=== PATIENT | male | born 2000 | race Caucasian/White ===

== ENCOUNTER 2021-09-13 12:31 | Emergency (ER) | payer BC, SELFPAY ==
[2021-09-13 12:54] VITALS: PULSE 77; RESP 16; TEMP 36.6; O2SAT 98; BMI 28.7
[2021-09-13] MEDS: Tetracaine HCl/PF 0.5% Oph Sol 4 ML DROPS 3 DROP EYE-LEFT (14:05)
[2021-09-13] MEDS: Fluorescein Sodium STRIP 1 STRIP EYE-LEFT (14:05)
--- NOTE | 2021-09-13 15:09 | ED.EYEPROB ---
HPI - Eye Problem General Chief complaint: Eye Problems Stated complaint: metal in eye Time Seen by Provider: 09/13/21 13:57 Source: patient Mode of arrival: ambulatory History of Present Illness HPI Narrative: 20-year-old male with no significant past medical history presenting to the ED complaining metal foreign body to left eye x3 days. States was cutting under his car, then look to see progress and felt something fall into eye. denies wearing glasses or contacts. Reports eye irritation and tearing. Denies vision loss, blurry vision, nausea / vomiting MD chief complaint: eye pain and eye redness Related Data Previous Rx's Medication Instructions Recorded erythromycin 5 mg/gram (0.5 %) eye 0.5 inch ophthalmic (eye) QID 7 09/13/21 ointment days #3.5 grams ketorolac 0.4 % eye drops 1 drp ophthalmic (eye) QID 2 days 09/13/21 #5 mL Allergies Allergy/AdvReac Type Severity Reaction Status Date / Time Penicillins Allergy Hives Verified 09/13/21 13:00 Review of Systems Review of Systems: Constitutional: No Fever, No Chills, No Fatigue, No Malaise ENT/Mouth: No Ear Pain, No Nasal Congestion, No sore throat, No Rhinorrhea, No Swallowing Difficulty Eyes: + Eye Pain, No Swelling, No Redness, + Foreign Body, + Discharge, No Vision Changes Cardiovascular: No Chest Pain, No SOB Respiratory: No Cough, No Sputum, No Dyspnea Gastrointestinal: No Nausea, No Vomiting, No Diarrhea, No Constipation, No Abdominal pain, Genitourinary: No Dysuria, No Urinary Frequency, No Hematuria, No Flank Pain, No Urinary Flow Changes, No Hesitancy Musculoskeletal: No joint pain, No Myalgias, No Joint Swelling Skin: No Skin Lesions, No rash Neuro: No Weakness, No Loss of Consciousness, No Dizziness, No Headache Yes all other systems are reviewed and are negative Constitutional: Constitutional: Reports as per [facility] Past Medical History Attestation statement: The following information was validated with the patient. Social History Social History Advance Directives: No Advance Directives Information Provided: No Physical Exam Vital Signs: Vital Signs: Last Vital Signs Temp 98 F 09/13/21 12:54 Pulse 77 09/13/21 12:54 Resp 16 09/13/21 12:54 Pulse Ox 98 09/13/21 12:54 O2 Del Method 09/13/21 12:54 BMI result Body Mass Index 28.7 Const: General: cooperative, healthy appearing and no acute distress Orientation/consciousness: patient oriented x3 Limitations: no limitations HEENT: Head: Yes normal to inspection and Yes atraumatic Ears: hearing grossly normal bilaterally General nose exam: Normal external nose present Face and sinus: Yes normal facial exam Eyes: Periorbital: periorbital findings normal Eyelids: Yes eyelids normal Conjunctivae: conjunctival abnormal left conjunctival injection and discharge (clear) Corneas: corneas abnormal on the left fluorescein used and foreign body metallic and at clock position (8); without a rust ring; without ulcerations and fluorescein used Pupils: Equal, round and reactive pupils present EOM: EOMs intact bilaterally Direct Ophthalmoscopy: normal light reflex Neck: Neck: Yes normal visual inspection and Yes no meningeal signs Resp: Effort & Inspection: normal respiratory effort and no respiratory distress Auscultation: clear to auscultation bilaterally Cardio: Rate: regular rate Heart sounds: S1 normal heart sound present and S2 normal heart sound present Skin: Rashes: no rashes Wounds: no wounds Neuro: General: patient oriented x3, tone normal and no meningeal signs Cranial nerves: Yes Equal, round and reactive pupils present Gait exam (Neuro): Normal gait present Extrem: General: Yes normal to inspection Course Course Course Narrative: - this process description writer was able to partially remove foreign body. Case discussed with Dr. Hughes who was able to remove remaining retained foreign body. No appreciable rust ring. Results discussed with patient including worrisome signs and symptoms and strict return precautions and needed close follow-up with ophthalmology in the next 1-2 days. Discussed when to return to the emergency department. They verbalized understanding and feel safe for discharge at this time. MDM - Eye Problem MDM Narrative Medical decision making narrative: 20-year-old male with no significant past medical history presenting to the ED complaining metal foreign body to left eye x3 days. on exam vital signs stable, NAD/nontoxic-appearing, physical exam as above with noted conjunctival injection in foreign body at 08:00 o'clock position without appreciable ulceration, rust ring, or globe rupture. Low suspicion for periorbital cellulitis or orbital cellulitis plan: Visual acuity, fluorescein staining, foreign body removal Differential Diagnosis Differential diagnosis: Likely corneal abrasion, periorbital cellulitis, glaucoma, corneal ulcer and ruptured globe Medical Records Attestation: I reviewed the patient's medical records. Lab Data Attestation: I reviewed the patient's lab results. Procedures FB Removal Eye Location: eye (L) Topical anesthetic used: tetracaine Foreign body: metal Evidence of corneal penetration: No Technique: cotton tip swab Procedure performed under: direct visualization with magnification Post-procedure medication: topical anesthetic Patient tolerated procedure: well Discharge Plan Discharge Clinical Impression: Metal foreign body in eye region, Corneal abrasion Patient Disposition: Home, Self-Care Instructions: Corneal Abrasion (ED) Additional Instructions: You had a metal object in her eye which was mostly removed. Erythromycin is a topical antibiotic ointment. Ketorolac are pain medication eye drops. In addition you should be taking Tylenol and Motrin at home YOU NEED TO FOLLOW-UP WITH OPHTHALMOLOGY IN THE NEXT 1-2 DAYS. CALL TOMORROW MORNING TO MAKE AN APPOINTMENT if pain persists or worsens, he develops vision change or loss, unbearable pain please return to the emergency department Prescriptions: New erythromycin 5 mg/gram (0.5 %) ointment 0.5 inch ophthalmic (eye) QID 7 Days Qty: 3.5 0RF ketorolac 0.4 % drops 1 drp ophthalmic (eye) QID 2 Days Qty: 5 0RF Referrals: Juan Higuera [Physician] - 1 day Stand Alone Forms: Work/School Release
== END 2021-09-13 15:36 | disposition home or self-care (01) ==
PROVIDERS: Emergency Provider Emergency Medicine
DX: S05.02XA Injury of conjunctiva and corneal abrasion without foreign body, left eye, initial encounter (principal); Y28.9XXA Contact with unspecified sharp object, undetermined intent, initial encounter; Y93.9 Activity, unspecified; Y92.9 Unspecified place or not applicable; Y99.9 Unspecified external cause status
CPT/HCPCS: 65220; 99282; 99283